=== PATIENT | male | born 2000 | race Caucasian/White ===

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

== ENCOUNTER 2018-11-09 06:52 | Emergency (ER) | payer OTHER ==
[2018-11-09 07:03] VITALS: BP 150/83; PULSE 69; RESP 17; TEMP 98.3
[2018-11-09] MEDS ORDERED: ACET/COD 300 MG/30 MG STARTER PACK 6 TAB BTL PO STA (07:19)
--- NOTE | 2018-11-09 07:21 | ED ---
ENT HPI - General Chief complaint: Dental/Oral Stated complaint: Dental Pain Time Seen by Provider: 11/09/18 07:15 Source: patient, RN notes reviewed Mode of arrival: ambulatory Limitations: no limitations - History of Present Illness Initial comments: 18-year-old male presents emergency Department chief complaint of left lower dental pain. Patient states he had an abscess in the past was placed on prednisone by a dentist. Patient states that it cleared up to about for his procedure. Patient states that this started on Saturday worsened last day or so. No fevers no chills patient just reports pain. Patient states that he is swollen on the left side in which she was placed on steroids for. He had no antibiotics given at that time. Patient states that it seemed to worsen when she was placed on steroids. - Related Data Home Medications Medication Instructions Recorded Confirmed Aspirin/Acetaminophen/Caffeine 1 tab PO DAILY PRN 04/19/17 04/19/17 [Excedrin Migraine Caplet] Previous Rx's Medication Instructions Recorded Ibuprofen [Motrin] 600 mg PO Q6HR PRN #20 tab 04/19/17 Ibuprofen [Motrin] 600 mg PO Q8HR PRN #30 tab 11/09/18 Penicillin V Potassium [Pen Vee K] 500 mg PO QID #40 tablet 11/09/18 Allergies Allergy/AdvReac Type Severity Reaction Status Date / Time No Known Allergies Allergy Verified 11/09/18 07:03 Review of Systems ROS Statement: Those systems with pertinent positive or pertinent negative responses have been documented in the HPI. ROS Other: All systems not noted in ROS Statement are negative. Past Medical History Past Medical History: No Reported History History of Any Multi-Drug Resistant Organisms: None Reported Past Surgical History: Orthopedic Surgery Additional Past Surgical History / Comment(s): elbow surgery Past Psychological History: Anxiety Smoking Status: Never smoker Past Alcohol Use History: Rare Past Drug Use History: Marijuana General Exam Limitations: no limitations General appearance: alert, in no apparent distress Head exam: Present: atraumatic, normocephalic, normal inspection Eye exam: Present: normal appearance, PERRL, EOMI. Absent: scleral icterus, conjunctival injection, periorbital swelling ENT exam: Present: mucous membranes moist, TM's normal bilaterally, normal external ear exam. Absent: normal oropharynx (Mild erythema left lower no drainable abscess) Neck exam: Present: full ROM, lymphadenopathy. Absent: normal inspection, tenderness, meningismus Respiratory exam: Present: normal lung sounds bilaterally. Absent: respiratory distress, wheezes, rales, rhonchi, stridor Cardiovascular Exam: Present: regular rate, normal rhythm, normal heart sounds. Absent: systolic murmur, diastolic murmur, rubs, gallop, clicks Course Vital Signs 11/09/18 07:01 Temperature 98.3 F Pulse Rate 69 Respiratory 17 Rate Blood Pressure 150/83 O2 Sat by Pulse 100 Oximetry Medical Decision Making - Medical Decision Making 18-year-old male presented for left lower dental pain. Patient was placed on Penicillin VK. Patient will be given started back without codeine and ibuprofen. Patient is advised follow-up with the dentist next 1-2 days. Return parameters were discussed. Patient advised to discontinue low-dose steroids that he was placed on Disposition Clinical Impression: Dental abscess, Toothache Disposition: HOME SELF-CARE Condition: Stable Instructions (If sedation given, give patient instructions): Dental Abscess (ED) Additional Instructions: Please return to the Emergency Department if symptoms worsen or any other concerns. Prescriptions: Ibuprofen [Motrin] 600 mg PO Q8HR PRN #30 tab PRN Reason: Pain Penicillin V Potassium [Pen Vee K] 500 mg PO QID #40 tablet Is patient prescribed a controlled substance at d/c from ED?: No Referrals: None,Stated [Primary Care Provider] - 1-2 days Time of Disposition: 07:21
== END 2018-11-09 07:30 | disposition home or self-care (01) ==
LOC: EC 06:52
DX: K04.7 Periapical abscess without sinus (principal)
CPT/HCPCS: 99282

== ENCOUNTER 2018-11-10 16:43 | Emergency (ER) | payer OTHER ==
[2018-11-10 17:13] VITALS: BP 143/83; PULSE 66; RESP 16; TEMP 98.5
--- NOTE | 2018-11-10 18:59 | ED ---
General Adult HPI - General Chief complaint: Dental/Oral Stated complaint: Dental pain Time Seen by Provider: 11/10/18 18:15 Source: patient, RN notes reviewed, old records reviewed Mode of arrival: ambulatory Limitations: no limitations - History of Present Illness Initial comments: 18-year-old female patient presents to ED with abscess of the 20th tooth. Patient is been ongoing for approximately 3 days. Patient was seen in this emergency department yesterday for dental pain placed on Penicillin VK. Patient denies any other complaints at this time. Systemic: Pt denies fatigue, fever/chills, rash. Pt denies weakness, night sweats, weight loss. Neuro: Pt denies headache, visual disturbances, syncope or pre-syncope. HEENT: Pt denies ocular discharge or irritation, otalgia, rhinorrhea, pharyngitis or notable lymphadenopathy. Cardiopulmonary: Pt denies chest pain, SOB, heart palpitations, dyspnea on exertion. Abdominal/GI: Pt denies abdominal pain, n/v/d. : Pt denies dysuria, burning w/ urination, frequency/urgency. Denies new onset urinary or bowel incontinence. MSK: Pt denies myalgia, loss of strength or function in extremities. Neuro: Pt denies new onset weakness, paresthesias. - Related Data Home Medications Medication Instructions Recorded Confirmed Aspirin/Acetaminophen/Caffeine 1 tab PO DAILY PRN 04/19/17 04/19/17 [Excedrin Migraine Caplet] Previous Rx's Medication Instructions Recorded Ibuprofen [Motrin] 600 mg PO Q6HR PRN #20 tab 04/19/17 Ibuprofen [Motrin] 600 mg PO Q8HR PRN #30 tab 11/09/18 Penicillin V Potassium [Pen Vee K] 500 mg PO QID #40 tablet 11/09/18 Allergies Allergy/AdvReac Type Severity Reaction Status Date / Time No Known Allergies Allergy Verified 11/10/18 17:10 Review of Systems ROS Statement: Those systems with pertinent positive or pertinent negative responses have been documented in the HPI. ROS Other: All systems not noted in ROS Statement are negative. Past Medical History Past Medical History: No Reported History History of Any Multi-Drug Resistant Organisms: None Reported Past Surgical History: Orthopedic Surgery Additional Past Surgical History / Comment(s): elbow surgery Past Psychological History: Anxiety Smoking Status: Never smoker Past Alcohol Use History: Rare Past Drug Use History: Marijuana General Exam - General Exam Comments Initial Comments: Constitutional: NAD, AOX3, Pt has pleasant affect. HEENT: NC/AT, trachea midline, neck supple, no lymphadenopathy. Posterior pharynx non erythematous, without exudates. External ears appear normal, without discharge. Mucous membranes moist. Eyes PERRLA, EOM intact. There is no scleral icterus. No pallor noted. Mild abscess noted at 20 tooth. Incision and drainage performed. Displayed plus, patient tolerated procedure well. No other areas of infection or cellulitis noted. Oral dentition is adequate. Cardiopulmonary: RRR, no murmurs, rubs or gallops, no JVD noted. Lungs CTAB in anterior and posterior neal. No peripheral edema. Abdominal exam: Abdomen soft and non-distended. Abdomen non-tender to palpation in all 4 quadrants. Bowel sounds active in LLQ. No hepatosplenomegaly. No ecchymosis Neuro: CN II-XII grossly intact. No nuchal rigidity. No raccon eyes, no norton sign, no hemotympanum. No cervical spinal tenderness. MSK: No posterior calf tenderness bilaterally, homans sign negative bilaterally. Posterior tibialis and radial pulse +2 bilaterally. Sensation intact in upper and lower extremities. Full active ROM in upper and lower extremities, 5/5 stregnth. Limitations: no limitations Course Vital Signs 11/10/18 11/10/18 17:10 19:19 Temperature 98.5 F 98.5 F Pulse Rate 66 66 Respiratory 16 16 Rate Blood Pressure 143/83 143/83 O2 Sat by Pulse 98 98 Oximetry Medical Decision Making - Medical Decision Making 18-year-old female patient presents to ED with abscess of the 20th tooth. Patient is been ongoing for approximately 3 days. Patient was seen in this emergency department yesterday for dental pain placed on Penicillin VK. Patient denies any other complaints at this time. Patient will signs stable, afebrile. Physical exam displayed: Mild abscess noted at 20 tooth. Incision and drainage performed. Displayed plus, patient tolerated procedure well. Patient will continue Penicillin VK. Patient follow up with dentist at scheduled appointment. Patient returned irritation or signs. Case discussed with Dr. Sorenson. Disposition Clinical Impression: Dental abscess Disposition: HOME SELF-CARE Condition: Stable Instructions (If sedation given, give patient instructions): Dental Abscess (ED) Additional Instructions: Patient to adhere to previously discussed treatment plan and will take medication(s) as directed. Patient to follow up with PCP in 1-2 days. Patient to return to ED if symptoms do not improve. Continue taking penicillin VK as directed. Follow-up with dentist at scheduled appointment. Follow up with primary care provider in 1-2 days. Is patient prescribed a controlled substance at d/c from ED?: No Referrals: Carolina Grayson DO [Primary Care Provider] - 1-2 days
== END 2018-11-10 19:27 | disposition home or self-care (01) ==
LOC: EC 16:43
DX: K04.7 Periapical abscess without sinus (principal)
CPT/HCPCS: 41800; 99283